=== PATIENT | male | born 1970 | race African-American/Black ===

== ENCOUNTER 2024-08-22 18:42 | Emergency (ER) | payer MEDICAID ==
[~2024-08-22] VITALS: Ht 182.9 cm; Wt 140.0 kg
[~2024-08-22 18:42] MED LIST: AMLO-905 PO; Folic Acid PO; HYDR12.529 PO; LISI-651 PO; Multivitamins,Ther W-Minerals PO; OMEP20CA14 PO; RISP05 PO
[2024-08-22 18:49] VITALS: O2SAT 92
[2024-08-22 19:26] LABS: BASOPHILS % 0.3 % (0.0-2.0); EOSINOPHILS % 4.2 % (0.0-5.0); HEMATOCRIT. 37.7 % (42.0-52.0); HEMOGLOBIN. 11.7 g/dL (14.0-18.0); LYMPHOCYTES % 26.6 % (20.0-50.0); MEAN PLATELET VOLUME 8.6 fl (7.4-10.4); MONOCYTES % 8.3 % (2.0-8.0); NEUTROPHILS % 60.6 % (40.0-76.0); PLATELET 362 x1000/uL (130-400); RED BLOOD CELL COUNT 5.61 mill/uL (4.7-6.1); RED CELL DISTRIBUTION WIDTH 18.6 % (11.6-14.6)
[2024-08-22 19:39] LABS: CREATININE 1.4 mg/dL (0.6-1.3); UREA NITROGEN BLOOD 14 mg/dL (9-23)
[2024-08-22 19:40] LABS: ETHANOL BLOOD 42 mg/dL (<10)
[2024-08-22 19:41] LABS: ASPARTATE AMINOTRANSFERASE 19 IU/L (<34); BILIRUBIN DIRECT < 0.1 mg/dL (<=3.0)
[2024-08-22 19:42] LABS: BILIRUBIN TOTAL 0.3 mg/dL (0.1-1.0); PROTEIN TOTAL 7.3 g/dL (6.0-8.3)
[2024-08-22 19:52] LABS: ADD RBC MORPHOLOGY YES
[2024-08-22 20:16] LABS: PLATELET ESTIMATE NORMAL
[2024-08-22] MEDS: ONDANSETRON HCL 4MG/2ML INJ IV STA (20:22)
[2024-08-22] MEDS: SODIUM CHLORIDE 0.9% 1,000 ML IV ONE (20:27)
[2024-08-22] MEDS ORDERED: POLY119P2 MT (20:59)
[2024-08-22 22:41] VITALS: BP 138/81; PULSE 100; RESP 16; TEMP 36.7; O2SAT 100
== END 2024-08-22 22:46 | disposition home or self-care (01) ==
LOC: ER 18:42
DX: F10.129 Alcohol abuse with intoxication, unspecified (principal); F12.90 Cannabis use, unspecified, uncomplicated; K59.00 Constipation, unspecified; E11.9 Type 2 diabetes mellitus without complications; I10 Essential (primary) hypertension; J45.909 Unspecified asthma, uncomplicated; Z79.899 Other long term (current) drug therapy; Z98.890 Other specified postprocedural states; Y90.2 Blood alcohol level of 40-59 mg/100 ml
CPT/HCPCS: 80076; 80048; 80320; 83690; 85025; 36415; 71045; 93005; 96361; 96374; 99285; J2405; J7030; Z7610; G0480

== ENCOUNTER 2024-11-22 16:00 | Emergency (ER) | payer MEDICAID ==
[~2024-11-22] VITALS: Ht 177.8 cm; Wt 150.0 kg
[~2024-11-22 16:00] MED LIST changes: +POLY119P2 MT
[2024-11-22 16:07] VITALS: O2SAT 95
[2024-11-22] MEDS: SODIUM CHLORIDE 0.9% 1,000 ML IV ONE (17:28)
[2024-11-22] MEDS: ONDANSETRON 4MG ODT PO ONE (17:28)
[2024-11-22] MEDS: HALOPERIDOL LACTATE 5MG/ML VIAL IM ONE (17:28)
[2024-11-22 17:43] LABS: BASOPHILS % 0.4 % (0.0-2.0); EOSINOPHILS % 0.4 % (0.0-5.0); HEMATOCRIT. 38.8 % (42.0-52.0); HEMOGLOBIN. 12.2 g/dL (14.0-18.0); LYMPHOCYTES % 8.9 % (20.0-50.0); MEAN PLATELET VOLUME 9.1 fl (7.4-10.4); MONOCYTES % 5.5 % (2.0-8.0); NEUTROPHILS % 84.8 % (40.0-76.0); PLATELET 327 x1000/uL (130-400); RED BLOOD CELL COUNT 6.06 mill/uL (4.7-6.1); RED CELL DISTRIBUTION WIDTH 17.6 % (11.6-14.6)
[2024-11-22 17:44] LABS: ADD RBC MORPHOLOGY YES
[2024-11-22] MEDS: MORPHINE SULFATE 4 MG/ML INJ (FOR IV/IM USE) IV ONE (17:45)
[2024-11-22 17:58] LABS: CREATININE 1.0 mg/dL (0.6-1.3)
[2024-11-22 18:00] LABS: BILIRUBIN DIRECT 0.3 mg/dL (<=3.0); BILIRUBIN TOTAL 1.0 mg/dL (0.1-1.0); PROTEIN TOTAL 8.3 g/dL (6.0-8.3)
[2024-11-22 18:05] LABS: PLATELET ESTIMATE NORMAL
[2024-11-22 18:15] LABS: UREA NITROGEN BLOOD 13 mg/dL (9-23)
[2024-11-22 18:17] LABS: ASPARTATE AMINOTRANSFERASE 34 IU/L (<34)
[2024-11-22] MEDS: POTASSIUM CHLORIDE 20MEQ/PACKET PO SCH (19:12)
[2024-11-22] MEDS: ACETAMINOPHEN 325MG TABLET PO ONE (19:30)
[2024-11-23 00:02] VITALS: BP 147/87; PULSE 101; RESP 12; TEMP 36.9; O2SAT 95
== END 2024-11-23 00:23 ==
LOC: ER 16:00
DX: R11.16 Cannabis hyperemesis syndrome (principal); E11.9 Type 2 diabetes mellitus without complications; F12.10 Cannabis abuse, uncomplicated; I10 Essential (primary) hypertension; J45.909 Unspecified asthma, uncomplicated; Z79.899 Other long term (current) drug therapy
CPT/HCPCS: 80076; 80048; 83690; 85025; 36415; 96361; 96372; 96374; 99284; Q0162; J1630; J2270; J7030; Z7610 ×2; A4606